=== PATIENT | male | born 1965 | race Two or more races ===

== ENCOUNTER 2019-11-07 05:46 | Day surgery (SDC) | payer OTHER ==
[~2019-11-07] VITALS: Ht 190.5 cm; Wt 104.3 kg
[2019-11-07] MEDS ORDERED: LOSARTAN-HCTZ1 EAC2 (06:04)
--- NOTE | 2019-11-07 06:09 | NUR ---
SE RECIBE PTE ALERTA Y ORIENTADO POR KAITLIN. PTE ES REFERIDO A ER POR DR. DELMA JACKSON POR DOLOR EN EL RECTO Y [place]. PTE INDICA NO ESTAR [place].
--- NOTE | 2019-11-07 08:05 | NUR ---
PTE EVALUADO POR EL DR JUANY TOLENTINO [place]. SE ORIENTA SOBRE EL MISMO, LO CUAL REFIERE ENTENDER. SE REALIZAN PRUEBAS D ELABORATORIO Y SE ADMINISTRA MEDICAEMNTOS CALEB ORDEN MEDICA Y SIGUIENDO MEDIDAS ASEPTICAS.
--- NOTE | 2019-11-07 10:00 | NUR ---
PTE CON ORDEN DE ADMISION PARA OR DEL DR JACKSON. SE ORIENTA A PTE Y FAMILIAR SOBRE EL PROCESO DE ADMISION , [place] Y PROCEDIMIENTOS A REALIZAR, LO CUAL REFIEREN ENTENDER. SE REALIZA EKG Y SE ADMINISTRAN MEDICAMENTOS CALEB ORDEN MEDICA Y SIGUIENDO MEDIDAS ASEPTICAS. PTE ORIENTADO Y CON VESTIMENTA PARA OR.
[2019-11-07] MEDS ORDERED: CIPRO500 MG PO (12:19)
[2019-11-07] MEDS ORDERED: FLAGYL500MG PO (12:19)
[2019-11-07] MEDS ORDERED: PERCOCET 5-3251 EACH PO (12:20)
== END 2019-11-07 13:00 | disposition home or self-care (01) ==
LOC: ER 05:46 → CIR.AMB 07:00 → SEC-K 08:33 → O/R 08:33 → ER 08:33 → CIR.AMB 13:00 → EDSTATUS 13:15 → SEC-K 14:41 → O/R 14:41 → SEC-K 17:00
DX: K60.0 Acute anal fissure (principal); K62.5 Hemorrhage of anus and rectum; K62.89 Other specified diseases of anus and rectum